=== PATIENT | male | born 1935 | race Caucasian/White ===

== ENCOUNTER → 2017-08-07 05:57 | Outpatient (CLI) | payer MEDICARE, OTHER, SELFPAY ==
--- NOTE | 2017-08-07 09:08 | STRESSREP ---
Stress Test Report Pharmacologic myocardial perfusion stress test. 82-year-old man with a history of coronary artery disease. Medications aspirin Amaryl atorvastatin Plavix Lasix. Stress protocol: Resting EKG demonstrates sinus rhythm with a rate of 63 bpm. Resting blood pressure is 152/68 mmHg. 0.4 mg of regadenoson was infused per usual protocol followed by rapid intravenous saline flush injection continuous EKG monitoring was performed. The maximum heart rate attained was 64 bpm which was 46% of maximum predicted heart rate the maximum workload attained was 1 metabolic equivalent. The patient maintained a paced beat throughout. The maximum blood pressure was 152/68 mmHg. Myocardial perfusion protocol. 11.9 mCi of technetium 99m sestamibi was injected at rest. 0.4 mg regadenoson was infused per usual protocol. Peak infusion 33.6 mCi of technetium 99m sestamibi was injected. Stress images were obtained stress and rest images were reconstructed and compared in the short axis vertical long and horizontal long axis. Gated images were also obtained. Perfusion SPECT analysis. Review of the stress images demonstrate normal uptake of tracer noted in all areas of the myocardium. The resting images similarly demonstrate normal uptake of tracer noted in all areas of the myocardium. No areas of reversibility are noted suggest ischemia and no previous infarct is noted. Gated SPECT analysis: The gated ejection fraction is noted to be 69%. Conclusion: Normal pharmacologic myocardial perfusion stress test. Preserved ejection fraction.
== END ==
PROVIDERS: Family Provider Family Medicine; PCP Family Medicine; Visit Provider Internal Medicine Cardiovascular Disease
DX: I25.10 Atherosclerotic heart disease of native coronary artery without angina pectoris (principal)
CPT/HCPCS: 78452; 93017; A9500; A4216; J2785

== ENCOUNTER → 2017-11-18 16:00 | Outpatient (CLI) | payer MEDICARE, OTHER, SELFPAY | PROVIDERS: Family Provider Family Medicine; PCP Family Medicine; Visit Provider Internal Medicine Critical Care Medicine | DX: G47.33 Obstructive sleep apnea (adult) (pediatric) (principal) | CPT/HCPCS: 98960; G0463 ==

== ENCOUNTER → 2018-01-29 11:40 | Outpatient (CLI) | payer MEDICARE, OTHER, SELFPAY ==
[2018-01-29 12:22] LABS: Absolute Lymphocyte Count 1.32 X10^3/ul (0.83-4.51); Absolute Neutrophil Count 3.3 X10^3/uL (2.0-7.7); Basophil# 0.03 X10^3/uL; Basophil% 0.6 % (0-1); Eosinophil# 0.16 X10^3/uL; Eosinophils% 3.1 % (0-5); Hematocrit 35.1 % (40-54); Hemoglobin 11.2 g/dl (13.0-16.5); Lymphocyte # 1.32 X10^3/ul (4.0); Lymphocyte % 25.5 % (19-41); Mean Corp Hgb Conc 31.9 g/gl (32-36); Mean Corpuscular Hgb 27.9 pg (27.0-32.0); Mean Corpuscular Volume 87.5 fL (80-94); Mean Platelet Vol. 8.8 fl (6.2-12.0); Monocyte# 0.36 X10^3/uL; Neutrophil # 3.29 X10^3/uL (2.7-7.7); Neutrophil % 63.6 % (47-70); Platelet Count 201 K/mm3 (150-450); RBC Distribution Width CV 14.5 % (11.6-14.6); RBC Distribution Width SD 45.9 fl (35.1-43.9); Red Blood Count 4.01 M/mm3 (4.6-6.2); White Blood Count 5.2 K/mm3 (4.4-11.0)
[2018-01-29 12:24] LABS: POSITIVE COUNT NO; POSITIVE DIFFERENTIAL NO; POSITIVE MORPHOLOGY NO
[2018-01-29 12:43] LABS: AST(SGOT) 14 U/L (15-37); Alanine Aminotransfer ALT/SGPT 28 U/L (16-61); Albumin, Serum 3.5 g/dL (3.2-5.0); Alkaline Phosphatase 122 U/L (45-117); Anion Gap 9 (5-15); BUN 28 mg/dL (7-18); BUN/Creat Ratio 16.8 RATIO (10-20); Bilirubin, Direct 0.13 mg/dL (0.00-0.30); Calcium,Total 9.2 mg/dL (8.5-10.1); Chloride 102 mmol/L (98-107); Cholesterol 122 mg/dL (200); Creatinine, Serum 1.67 mg/dL (0.70-1.30); EST Glomerular Filtration Rate 42 mL/min (>60); Est Glom Filt Rate - Afr Amer 51 mL/min (>60); Globulin 3.4 g/dL (2.2-4.2); Glucose 227 mg/dL (74-106); High Density Lipoprotein 43 mg/dL; Potassium 4.2 mmol/L (3.5-5.1); Protein, Total 6.9 g/dL (6.4-8.2); Sodium Level 138 mmol/L (136-145); Triglycerides 75 mg/dL; Very Low Density Lipoprotein 15 mg/dL (5-40)
== END ==
PROVIDERS: Family Provider Family Medicine; PCP Family Medicine; Visit Provider Internal Medicine Cardiovascular Disease
DX: I50.32 Chronic diastolic (congestive) heart failure (principal); I48.92 Unspecified atrial flutter; E78.5 Hyperlipidemia, unspecified
CPT/HCPCS: 36415; 80048; 80061; 80076; 85025

== ENCOUNTER → 2018-07-21 11:05 | Outpatient (CLI) | payer MEDICARE, OTHER, SELFPAY ==
[2018-07-21 12:09] LABS: AST(SGOT) 22 U/L (15-37); Alanine Aminotransfer ALT/SGPT 23 U/L (16-61); Albumin, Serum 3.6 g/dL (3.2-5.0); Alkaline Phosphatase 79 U/L (45-117); Bilirubin, Direct 0.14 mg/dL (0.00-0.30); Cholesterol 109 mg/dL (200); Globulin 3.3 g/dL (2.2-4.2); High Density Lipoprotein 53 mg/dL; Protein, Total 6.9 g/dL (6.4-8.2); Triglycerides 69 mg/dL; Very Low Density Lipoprotein 14 mg/dL (5-40)
== END ==
PROVIDERS: Family Provider Family Medicine; PCP Family Medicine; Referring Provider Internal Medicine Cardiovascular Disease; Visit Provider Internal Medicine Cardiovascular Disease
DX: E78.5 Hyperlipidemia, unspecified (principal)
CPT/HCPCS: 36415; 80061; 80076

== ENCOUNTER → 2019-01-08 | Outpatient (CLI) | payer MEDICARE, OTHER, SELFPAY ==
[2018-07-28 13:06] VITALS: BMI 42.1
--- NOTE | 2019-01-08 15:39 | CT_ITS ---
HISTORY: Atherosclerosis. Diabetes. Technique: Following the uneventful administration of Isovue-370, 100 ML, contiguous helical images were obtained from the ascending thoracic aorta through the feet. 2-D and 3-D MIP reformats were performed on the acquisition scanner. 1295 images Findings: Sternal wires. Cardiac pacer. Findings suggestive of a CABG. Cardiomegaly. Pulmonary edema with both alveolar and interstitial. More focal disease in the left lower lobe could be asymmetric pulmonary edema, or could also be pneumonia. Multilevel degenerative disc disease and scoliosis. Atherosclerotic disease is present within the descending thoracic aorta and continues into the abdominal aorta. The abdominal aorta is tortuous, but is without aneurysm or proceed dissection. Severe large dense calcific plaque is present at the origin of the celiac trunk and the SMA. The calcific plaque is so great that I am unable to determine the severity of the stenosis within the origin of the celiac trunk or the origin of the SMA. There is flow downstream from these dense large calcific plaques. Calcific plaque is also present at the origin of both left and right solitary renal arteries. The stomach is distended with liquid and gas. The gallbladder is somewhat contracted. There is some reflux of the contrast bolus into the IVC and hepatic veins indicative of cardiac insufficiency. The liver, spleen, and right adrenal gland are normal. The pancreas is severely fattily infiltrated with little remaining parenchyma. The left adrenal gland mass measures 6.2 x 4.8 cm. It is mostly hypodense. It does contain some enhancing components and some calcifications. These nonenhancing noncalcified area has a density of 16 Hounsfield units. This lesion was present on the MRI of the abdomen dated December 14, 2015. Multiple hypodense masses throughout both kidneys were also present on the MRI. These continue to likely represent benign cysts. Atherosclerotic plaque is severe at the origin of both left and right common iliac arteries flow continues through the severe bilateral common iliac artery stenoses into the internal and external iliac arteries. The calcific plaque remains especially severe within the internal iliac arteries. Extrailiac arterial flow remains to the bilateral common femoral arteries. The prostate is not enlarged. Benign prostatic calcific plaque is present within the prostate gland. The urinary bladder is mostly decompressed. Bowel gas pattern is normal. 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 It extends for almost 11 cm in craniocaudal dimensions. At the right common femoral artery there is some dense calcific plaque. This is nearly occlusive and greater than 75% stenosis. The length of this severe dense calcific plaque within the right common femoral into the origin of the right superficial femoral is great. Flow remains within the right superficial femoral and profunda femoris but diminished. Flow continues in the right superficial femoral artery. Plaque is severe within the right superficial femoral artery within the adductor canal. The vessel remains patent popliteal artery. Plaque within the right popliteal artery is severe. This causes greater than and 90% stenosis to the right popliteal artery. The plaque within the right popliteal artery extends in craniocaudal dimensions for severe stenosis. This is perhaps occlusive calcific plaque within the pop teal artery at the level of the knee. There is flow perceived within the popliteal artery below the knee into the anterior tibial and tibioperoneal trunk and then into the peroneal and posterior to arteries. Calcific plaque is severe within the right anterior tibial artery likely occluding the vessel. Flow remains within the peroneal and posterior tibial artery. The dorsalis pedis is profused. The posterior tibial artery remains patent below the ankle. Left lower extremity CT angiogram: Flow is severe within the left common femoral artery. This disease continues into the origins of the left superficial femoral and profunda femoris arteries. There is a surgical staple within the left medial thigh. Disease within the left superficial femoral artery is equally severe is the right with likely near occlusive calcific plaque. Severe calcific plaque is also present within the popliteal artery. There does appear to be some flow remaining however within the distal popliteal artery to the anterior tibial tibioperoneal trunk, posterior tibial, peroneal arteries. The left anterior tibial artery occludes with severe calcific plaque. The left peroneal artery contains minimal flow. Left posterior tibial artery continues to have flow and crosses the ankle to the plantar surface of the foot. The dorsalis pedis is somehow reconstituted. Cellulitis is present within both calves but is greater on the left than right. Arthritis is present within the tarsal bones and the tarsometatarsal joints. Bilateral total knee arthroplasties. Metal within the knees causes severe beam hardening artifact securing fine assessment of sections of the popliteal artery. IMPRESSION: Cardiomegaly. Pulmonary edema. Cardiac insufficiency. Small hiatal hernia. Persistent left adrenal mass. It has not significantly increased in size. Please refer to the MRI report from December 14, 2015 for more specific diagnosis. Severe calcific atherosclerotic plaque within the abdominal aorta causing severe stenosis to the origin of the celiac trunk, SMA, and moderate stenosis the origin of the renal arteries. Severe calcific plaque within the common iliac arteries causing high-grade stenoses. Severe atherosclerotic plaque within the internal iliac arteries left greater than right. Severe calcific plaque within the origin of the right common femoral artery and more distally causing significant stenosis, likely greater than 90%. Significant plaque within the left common femoral artery causing perhaps 70% stenosis. Severe calcific plaque within bilateral superficial femoral arteries in the adductor canals causing greater than 80% stenosis. Is plaque continues be severe into the popliteal arteries were decreased near occlusive causing greater than 90% stenosis if not occlusion. Severe disease in both anterior tibial arteries which occluded and reconstituted. Small bilateral peroneal arteries. Severe disease within the posterior tibial arteries, however, both posterior tibial arteries remain patent across the ankle to the plantar surface of the foot. Both dorsalis pedis arteries reconstitute. Individualized dose optimization techniques were used for this CT. at 0257 Reported and signed by: Mario Gardner MD Electronically Signed: Mario Gardner MD at 2:56 EDT Tel , Service support , CT/CTA Abd w/Runoff W/WO Contrast
== END | disposition home or self-care (01) ==
LOC: CT 15:37
PROVIDERS: Family Provider Student in an Organized Health Care Education/Training Program; PCP Family Medicine; Referring Provider Surgery Vascular Surgery; Visit Provider Surgery Vascular Surgery
DX: I70.213 Atherosclerosis of native arteries of extremities with intermittent claudication, bilateral legs (principal)
CPT/HCPCS: 75635; Q9967

== ENCOUNTER → 2019-01-30 | Outpatient (CLI) | payer MEDICARE, OTHER, SELFPAY ==
[2018-07-28 13:06] VITALS: BMI 42.1
[2019-01-30 13:46] LABS: Hematocrit 31.6 % (40-54); Hemoglobin 9.1 g/dL (13.0-16.5); Mean Corp Hgb Conc 28.8 g/dL (32-36); Mean Corpuscular Hgb 23.7 pg (27.0-32.0); Mean Corpuscular Volume 82.3 fL (80-94); Mean Platelet Vol. 9.1 fl (6.2-12.0); Platelet Count 211 K/mm3 (150-450); RBC Distribution Width CV 18.4 % (11.6-14.6); RBC Distribution Width SD 54.7 fl (35.1-43.9); Red Blood Count 3.84 M/mm3 (4.6-6.2); White Blood Count 5.5 K/mm3 (4.4-11.0)
[2019-01-30 13:49] LABS: Color, Urine Yellow (Yellow); Glucose, Dipstick Normal (Normal); Ketone-Dipstick Negative (Negative); Leukocyte Esterase-Dipstick Negative /ul (Negative); Nitrite-Dipstick Negative (Negative); Occult Blood-Urine 10 /ul (Negative); Protein-Dipstick 30 mg/dl (Negative); Specific Gravity, Urine 1.015 (1.002-1.030); Urine Bilirubin Dipstick Negative (Negative); Urine Clarity Clear (Clear); Urine Urobilinogen Normal (Normal)
[2019-01-30 14:03] LABS: ALB/GLOB Ratio 0.9 RATIO (0.9-2.4); AST(SGOT) 14 U/L (15-37); Alanine Aminotransfer ALT/SGPT 17 U/L (16-61); Albumin, Serum 3.4 g/dL (3.2-5.0); Alkaline Phosphatase 101 U/L (45-117); Anion Gap 7 (5-15); BUN 28 mg/dL (7-18); BUN/Creat Ratio 18.8 RATIO (10-20); Bilirubin, Direct 0.13 mg/dL (0.00-0.30); Calcium,Total 8.9 mg/dL (8.5-10.1); Chloride 107 mmol/L (98-107); Cholesterol 111 mg/dL (200); Creatinine, Serum 1.49 mg/dL (0.70-1.30); EST Glomerular Filtration Rate 48 mL/min (>60); Est Glom Filt Rate - Afr Amer 58 mL/min (>60); Globulin 3.7 g/dL (2.2-4.2); Glucose 99 mg/dL (74-106); High Density Lipoprotein 43 mg/dL; Potassium 4.1 mmol/L (3.5-5.1); Protein, Total 7.1 g/dL (6.4-8.2); Sodium Level 139 mmol/L (136-145); Triglycerides 72 mg/dL; Very Low Density Lipoprotein 14 mg/dL (5-40)
[2019-01-30 14:13] LABS: Microalbumin,Random Urine 82.8 mg/L (NO RANGE EST.)
== END | disposition home or self-care (01) ==
LOC: LAB 12:33
PROVIDERS: Family Provider Student in an Organized Health Care Education/Training Program; PCP Student in an Organized Health Care Education/Training Program; Referring Provider Internal Medicine Cardiovascular Disease; Visit Provider Internal Medicine Cardiovascular Disease
DX: I10 Essential (primary) hypertension (principal); E11.9 Type 2 diabetes mellitus without complications; E78.5 Hyperlipidemia, unspecified
CPT/HCPCS: 36415; 80053; 80061; 81002; 82043; 82248; 85027

== ENCOUNTER → 2019-02-25 | Outpatient (CLI) | payer MEDICARE, OTHER, SELFPAY ==
[2019-02-03 08:53] VITALS: BMI 42.9
--- NOTE | 2019-02-25 18:10 | STRESSREP ---
Stress Test Report Pharmacologic myocardial perfusion stress test next 83-year-old man with a history of peripheral vascular disease for preoperative cardiac evaluation. Patient status post permanent pacemaker implantation. Resting EKG demonstrates atrial fibrillation with a rate of 86 bpm and ventricular paced rhythm. Blood pressures 138/78 mmHg. 0.4 mg of regadenoson was infused per usual protocol followed by rapid intravenous saline flush injection continuous EKG monitoring was performed. The patient maintained atrial fibrillation throughout the recording. The maximum heart rate attained was 93 bpm which was 68% of maximum predicted heart rate the maximum workload was 1 metabolic equivalent. At rest there were no ST or T wave changes noted suggest abnormal flow reserve at peak infusion nonspecific ST-T wave changes were noted. The resting blood pressures 138/78 with a final blood pressure of 126/60 mmHg. Myocardial perfusion protocol. 15.0 mCi of technetium 99m sestamibi was injected at rest. 0.4 mg of regadenoson was infused per usual protocol. At peak infusion 45.0 mCi of technetium 99m sestamibi was injected stress images were obtained stress and rest images were reconstructed in comparing the short axis vertical and horizontal long axis. Gated images were also obtained Perfusion SPECT analysis: Review of the stress images demonstrate normal uptake of tracer noted in all rest myocardium the resting images similar demonstrate normal uptake of tracer noted in all areas of the myocardium. No areas of reversibility are noted suggest ischemia. Gated SPECT analysis: The gated ejection fraction is noted to be 46%. Conclusion: Normal pharmacologic myocardial perfusion stress test. Preserved ejection fraction.
== END | disposition home or self-care (01) ==
LOC: CVS 06:29
PROVIDERS: Family Provider Student in an Organized Health Care Education/Training Program; PCP Student in an Organized Health Care Education/Training Program; Referring Provider Internal Medicine Cardiovascular Disease; Visit Provider Internal Medicine Cardiovascular Disease
DX: Z01.810 Encounter for preprocedural cardiovascular examination (principal); I25.10 Atherosclerotic heart disease of native coronary artery without angina pectoris; Z95.1 Presence of aortocoronary bypass graft
CPT/HCPCS: 78452; 93017; A9500; A4216; J2785

== ENCOUNTER 2020-05-27 10:06 | Outpatient (RCR) | payer MEDICARE, OTHER, SELFPAY ==
[2020-03-01 07:40] VITALS: BMI 43.0
== END 2020-05-27 23:59 ==
LOC: IMMUN 10:06
PROVIDERS: PCP Student in an Organized Health Care Education/Training Program; Visit Provider Family Medicine
DX: Z23 Encounter for immunization (principal)
CPT/HCPCS: 0011A; 0012A; 91301